=== PATIENT | male | born 1965 | race Caucasian/White ===

== ENCOUNTER → 2020-03-23 14:36 | Outpatient (CLI) | payer OTHER, SELFPAY ==
--- NOTE | ~2020-03-23 | XR_ITS ---
EXAMINATION: XR hand RT min 3V DATE: 03/23/2020 15:09 INDICATION: Right hand pain. TECHNIQUE: 3 views of right hand were obtained. COMPARISON: None. FINDINGS: Bone alignment is normal. No fracture. There is mild osteoarthritis of first-third metacarp ophalangeal joints and most of the interphalangeal joints. There are punctate periarticular calcifica tions at many of the joints. IMPRESSION: 1. Mild polyarticular osteoarthritis. Reviewed, dictated and finalized at location A.
== END ==
PROVIDERS: PCP Internal Medicine; Visit Provider Internal Medicine
DX: M19.041 Primary osteoarthritis, right hand (principal)
CPT/HCPCS: 73130

== ENCOUNTER 2024-01-24 10:48 | Emergency (ER) | payer OTHER, SELFPAY ==
[2024-01-24] VITALS (21 sets, daily range): BP systolic 136–162; BP diastolic 80–99; PULSE 56–95; RESP 15–21; TEMP 36.8; O2SAT 99–100
--- NOTE | ~2024-01-24 | XR_ITS ---
EXAMINATION: XR chest 2V DATE: 01/24/2024 11:13 INDICATION: Intermittent chest pain between the shoulder blades TECHNIQUE: PA and lateral views of the chest were obtained. COMPARISON: None FINDINGS: The lungs are clear with no focal airspace opacities, pulmonary edema, pleural effusion or pneumothor ax. The cardiomediastinal silhouette is normal. Mild thoracic spondylosis with bridging osteophytes a t multiple levels consistent with diffuse idiopathic skeletal hyperostosis (DISH). IMPRESSION: 1. No acute cardiopulmonary disease. Reviewed, dictated and finalized at location B.
--- NOTE | ~2024-01-24 | CT_ITS ---
EXAMINATION: CTA chest DATE: 01/24/2024 12:28 INDICATION: Chest and back pain TECHNIQUE: Computed tomographic angiography (CTA) of the chest was performed without and with 100 mL Omnipaque-350 intravenous contrast. Volume-rendered 3D-reconstructions of the aorta and large arterie s were constructed by the technologist on a separate workstation. Automated exposure control and iter ative reconstruction technique were employed. The dose-length product was 354.74 mGy-cm. COMPARISON: None. FINDINGS: Lungs are clear with no pneumonia, pulmonary edema or other pulmonary infiltrates. No pleural effusio n or pneumothorax. Small fat-containing Bochdalek hernia at the right posterior sulcus. Heart size is normal. No pericardial effusion. Thoracic aorta is normal in caliber with no dissection. No patholog ically enlarged thoracic lymphadenopathy. Visualized upper abdomen is unremarkable. Moderate thoracic spondylosis bridging osteophytes at multiple levels consistent with diffuse idiopathic skeletal hype rostosis (DISH). . IMPRESSION: 1. Normal thoracic aorta. No acute cardiopulmonary disease. Reviewed, dictated and finalized at location B.
--- NOTE | 2024-01-24 10:48 | ECG_ITS ---
Test Date: 2024-01-24 10:53:44 Measurements Intervals [place] Rate: 67 P: 45 UT: 166 QRS: 7 QRSD: 108 T: 23 QT: 355 QTc: 377 Interpretive Statements SINUS RHYTHM LOW QRS VOLTAGE IN PRECORDIAL LEADS DELAYED PRECORDIAL R/S TRANSITION CONSIDER INFERIOR INFARCT, AGE INDETERMINATE BASELINE WANDER- V4-V6 ABNORMAL ECG No previous ECG available for comparison Electronically Signed On 01-24-2024 11:19:28 CDT by Jarad Bryson D.O.
[2024-01-24 11:08] LABS: Basophils Absolute Auto 0.1 K/mm3 (0.0-0.1); Basophils Percent Auto 1.3 % (0.2-1.2); Eosinophils Absolute Auto 0.1 K/mm3 (0-0.3); Eosinophils Percent Auto 0.8 % (0-4.4); Hematocrit 44.5 % (42.0-52.0); Hemoglobin 14.6 g/dL (14.0-18.0); Immature Granulocyte Absolute 0.03 K/mm3 (0.00-0.031); Immature Granulocyte Percent A 0.4 % (0-0.5); Lymphocytes Absolute Auto 2.67 K/mm3 (0.9-3.2); Lymphocytes Percent Auto 35.5 % (18.3-44.2); Mean Corpuscular HGB Conc 32.8 g/dl (32-36); Mean Corpuscular Hemoglobin 29.1 pg (26-34); Mean Corpuscular Volume 88.8 fl (80-100); Mean Platelet Volume 8.6 fl (7.4-10.4); Monocytes Absolute Auto 0.7 K/mm3 (0.1-0.6); Monocytes Percent Auto 9.2 % (2.6-8.5); Neutrophils Percent Auto 52.8 % (45.5-73.1); Platelet Count Result 301 k/mm3 (150-375); Red Blood Count 5.01 M/mm3 (4.6-6.20); Red Cell Distribution Width 12.3 % (11.5-14.5); White Blood Count 7.5 K/mm3 (4.5-10.0)
[2024-01-24 11:20] LABS: Alanine Aminotransferase 27 U/L (6-50); Albumin Level 4.8 g/dL (3.5-5.1); Alkaline Phosphatase 67 U/L (38-126); Anion Gap 8 mmol/L (4-12); Aspartate Amino Transferase 26 U/L (17-59); Bilirubin,Total 0.7 mg/dL (0.2-1.3); Blood Urea Nitrogen 16 mg/dL (9-20); Calcium 9.6 mg/dL (8.4-10.2); Carbon Dioxide 26 mmol/L (22-30); Chloride 107 mmol/L (98-107); Estimated CRCL calculation 82 ml/min; Estimated Glomerular Filt Rate > 60; Glucose 89 mg/dL (65-110); INR 0.9; Lipase 79 U/L (23-300); Potassium 4.3 mmol/L (3.4-5.0); Prothrombin Time 12.6 Seconds (11.1-14.7); Sodium 141 mmol/L (137-145)
[2024-01-24] MEDS: ASPIRIN 81 MG CHEWABLE TABLET 324 MG PO (11:20)
[2024-01-24 11:21] LABS: Partial Thromboplastin Time 30.1 Seconds (22.3-36.8)
[2024-01-24 11:32] LABS: Troponin I < 0.012 ng/mL (0.000-0.034)
--- NOTE | 2024-01-24 13:21 | ED.CHESTPAIN ---
HPI - Chest Pain General Chief Complaint: Chest Pain Stated Complaint: CHEST PAIN Time Seen by Provider: 01/24/24 12:05 History of Present Illness HPI narrative: Patient is a 58-year-old male who presents to the emergency department this complaining of substernal chest pain radiating to his back. Patient states that he has been having this pain on and off but today around 6:00 a.m. it got worse rating it at an 8 or a 9. Patient states that he does not have any history of cardiovascular disease but his grandfather of a heart attack at age 72. Patient currently has a stress test and an echocardiogram scheduled this month in approximately 2 weeks. patient states that the pain has resolved and he denies any current active chest, admits to mild soreness between his shoulder blades. Denies any fevers or chills at home and denies any additional symptoms or concerns at this time. Related Data Home Medications Medication Instructions Recorded Confirmed multivitamin (Daily Multi-Vitamin 1 tablet PO DAILY 01/18/24 01/18/24 tablet) Allergies Allergy/AdvReac Type Severity Reaction Status Date / Time No Known Drug Allergies Allergy Unknown Unknown Verified 01/18/24 14:34 [id number] Reductase AdvReac Severe Joint Pain Verified 01/18/24 15:11 Inhibitor Review of Systems Review of Systems: All systems are reviewed and are negative unless stated otherwise in the HPI. [facility] Family History Family History Mother Patient's mother is in good health Father Patient's father is in good health Sibling Patient's brother is in good health Grandparent Acute myocardial infarction Social History Social History Smoking status: Never smoker Alcohol intake: current Lack of Transportation: No Lack of Food: Never True Current Housing: I Have Housing Concerned About Future Housing: No Difficulty Paying Gas/Electric Bills: No Difficulty Paying for Meds: No Currently Unemployed: No Education: High School Diploma/GED Difficulty w/ Childcare or Family Care: Decline to Answer Exam Narrative: General: Alert, awake, afebrile, in no acute distress. HEENT: PERRL, no rhinorrhea, no post nasal drip, oropharynx clear. Cardiovascular: Regular rate and rhythm, no murmurs, rubs or gallops, no peripheral edema. Respiratory: Clear to auscultation bilaterally, no tachypnea, no wheezing, no rhonchi, no rubs, no respiratory distress. Abdomen: Soft, nontender, nondistended, no rebound, no guarding, no peritoneal signs. Musculoskeletal: No joint swelling or deformity, normal muscle tone. Back: Tenderness palpation over the right thoracic paraspinal muscles. Skin: No rashes or petechia, no signs of infection. Neurological: Alert and oriented to person, place, and time. Follows all commands. No focal deficits, speech is clear and fluent. Course Vital Signs Vital signs: Vital Signs Temperature 98.2 F 01/24/24 11:03 Pulse Rate 76 01/24/24 11:03 Respiratory Rate 16 01/24/24 11:03 Blood Pressure 160/89 H 01/24/24 11:03 Pulse Oximetry 100 01/24/24 11:03 Temperature 98.2 F 01/24/24 11:03 Pulse Rate 64 01/24/24 14:15 Respiratory Rate 20 01/24/24 14:15 Blood Pressure 139/88 01/24/24 13:54 Pulse Oximetry 99 01/24/24 14:15 MDM - Chest Pain MDM Narrative Medical decision making narrative: The patient was evaluated by myself in the emergency department. History is obtained from patient who is an independent historian and physical exam was performed. External medical records were reviewed at this time. IV was established and pertinent tests were ordered. A Lidoderm patch was placed over patient's right thoracic spinal region. EKG was obtained which revealed sinus rhythm at a rate of 67 beats per minute. No evidence of acute ischemia. EKG was independently i
--- NOTE | 2024-01-24 13:48 | ECG_ITS ---
Test Date: 2024-01-24 13:53:08 Measurements Intervals [place] Rate: 62 P: 36 MT: 170 QRS: 8 QRSD: 94 T: 8 QT: 369 QTc: 377 Interpretive Statements SINUS RHYTHM LOW QRS VOLTAGE IN PRECORDIAL LEADS CONSIDER INFERIOR INFARCT, AGE INDETERMINATE BASELINE ARTIFACT- I, II, III, AVR, AVL, AVF, V1-V2 ABNORMAL ECG Compared to ECG 01/24/2024 10:53:44 NO SIGNIFICANT CHANGE Electronically Signed On 01-24-2024 15:07:52 CDT by Jarad Bryson D.O.
[2024-01-24 14:25] LABS: Troponin I < 0.012 ng/mL (0.000-0.034)
[2024-01-24] MEDS: LIDOCAINE 5% PATCH 1 PATCH TRANSDERM (14:47)
== END 2024-01-24 14:54 | disposition home or self-care (01) ==
PROVIDERS: Emergency Medicine; Emergency Provider Emergency Medicine; PCP Nurse Practitioner Family
DX: R07.9 Chest pain, unspecified (principal); M54.9 Dorsalgia, unspecified
CPT/HCPCS: 36415; 71046; 71275; 80053; 83690; 84484; 85025; 85610; 85730; 93005; 99284; A9270; Q9967

== ENCOUNTER 2024-02-14 09:37 | Outpatient (CLI) | payer OTHER, SELFPAY ==
--- NOTE | 2024-02-14 09:34 | EST_ITS ---
Patient Info Name: Fabian Yo Age: 58 years : 1965 Gender: Male Ht: 67 in Wt: 183 lbs BSA: 2.00 m2 HR: 69 bpm BP: 148 / 92 mmHg Heart Rhythm: Sinus Rhythm Exam Date: 02/14/2024 10:04 AM Exam Location: Echo Lab Patient Status: Outpatient Admit Date: 02/14/2024 Staff Ordering Physician: Janis Trujillo APRN Attending Provider: Janis Trujillo APRN Exercise Technologist: Nai Hernandez CT Exercise Physician: Jarad Bryson DO Exam Type: CA stress test treadmill Study Info Indications R07.89 - Other chest pain A treadmill exercise stress test was performed. Summary 1. 1. Negative Fidel exercise stress test for ischemic ST changes by ECG criteria. 2. 2. Good functional capacity, achieving 12 METs of workload. 3. 3. Baseline hypertension with hypertensive response to exercise. 4. 4. Appropriate HR response to exercise. 5. 5. Appropriate HR recovery at 1 minute post exercise. 6. 6. No imaging with stress testing. 7. 7. Patient informed of the above results. Protocol: Fidel Stress ECG Details Stage: REST Duration (min): 4 min : 1 sec Speed (mph): 0.0 Grade (%): 0 HR (bpm): 67 SBP (mmHg): 148 DBP (mmHg): 92 METS: --- Stage: REST Duration (min): 25 min : 25 sec Speed (mph): 0.0 Grade (%): 0 HR (bpm): 65 SBP (mmHg): 148 DBP (mmHg): 92 METS: --- Stage: STAGE 1 Duration (min): 1 min : 0 sec Speed (mph): 1.7 Grade (%): 10 HR (bpm): 94 SBP (mmHg): 148 DBP (mmHg): 92 METS: --- Stage: STAGE 1 Duration (min): 2 min : 0 sec Speed (mph): 1.7 Grade (%): 10 HR (bpm): 104 SBP (mmHg): 148 DBP (mmHg): 92 METS: --- Stage: STAGE 1 Duration (min): 3 min : 0 sec Speed (mph): 1.7 Grade (%): 10 HR (bpm): 104 SBP (mmHg): 148 DBP (mmHg): 92 METS: --- Stage: STAGE 2 Duration (min): 1 min : 0 sec Speed (mph): 2.5 Grade (%): 12 HR (bpm): 111 SBP (mmHg): 148 DBP (mmHg): 92 METS: --- Stage: STAGE 2 Duration (min): 2 min : 0 sec Speed (mph): 2.5 Grade (%): 12 HR (bpm): 115 SBP (mmHg): 196 DBP (mmHg): 78 METS: --- Stage: STAGE 2 Duration (min): 3 min : 0 sec Speed (mph): 2.5 Grade (%): 12 HR (bpm): 116 SBP (mmHg): 196 DBP (mmHg): 78 METS: --- Stage: STAGE 3 Duration (min): 1 min : 0 sec Speed (mph): 3.4 Grade (%): 14 HR (bpm): 120 SBP (mmHg): 196 DBP (mmHg): 78 METS: --- Stage: STAGE 3 Duration (min): 2 min : 0 sec Speed (mph): 3.4 Grade (%): 14 HR (bpm): 121 SBP (mmHg): 137 DBP (mmHg): 86 METS: --- Stage: STAGE 3 Duration (min): 3 min : 0 sec Speed (mph): 3.4 Grade (%): 14 HR (bpm): 124 SBP (mmHg): 260 DBP (mmHg): 67 METS: --- Stage: STAGE 4 Duration (min): 1 min : 0 sec Speed (mph): 4.2 Grade (%): 16 HR (bpm): 132 SBP (mmHg): 260 DBP (mmHg): 67 METS: --- Stage: STAGE 4 Duration (min): 2 min : 0 sec Speed (mph): 4.2 Grade (%): 16
== END 2024-02-14 09:38 | disposition home or self-care (01) ==
PROVIDERS: PCP Nurse Practitioner Family; Visit Provider Nurse Practitioner Family
DX: R07.9 Chest pain, unspecified (principal)
CPT/HCPCS: 93017